=== PATIENT | female | born 1970 | race American Indian/Alaskan Native ===

== ENCOUNTER 2017-06-18 16:25 | Emergency (ER) | payer OTHER ==
[~2017-06-18] VITALS: Ht 154.9 cm; Wt 85.7 kg
[~2017-06-18 16:25] MED LIST: NORCO 5-325 TA1 EACH PO; PROVENTIL HFA6.7 GM INH
[2017-06-18] MEDS ORDERED: VENTOLIN HFA18 GM INH (17:02)
[2017-06-18] MEDS ORDERED: ZITHROMAX250 MG PO (17:02)
[2017-06-18] MEDS ORDERED: TESSALON PERLE100 MG PO (17:02)
== END 2017-06-18 17:06 | disposition home or self-care (01) ==
LOC: ED 16:25
DX: J32.9 Chronic sinusitis, unspecified (principal); J40 Bronchitis, not specified as acute or chronic; F17.200 Nicotine dependence, unspecified, uncomplicated; Z88.0 Allergy status to penicillin; Z88.6 Allergy status to analgesic agent
CPT/HCPCS: 99283

== ENCOUNTER 2017-07-04 12:18 | Inpatient (IN) | payer OTHER ==
[~2017-07-04] VITALS: Ht 154.9 cm; Wt 92.7 kg
[~2017-07-04 12:18] MED LIST changes: +TESSALON PERLE100 MG PO; +VENTOLIN HFA18 GM INH; +ZITHROMAX250 MG PO
--- NOTE | 2017-07-04 18:23 | NUR ---
46 YR OLD FEMALE ARRIVED TO ROOM 130 FROM ER VIA STRETCHER. PT STOOD AND TRANSFERRED SELF TO BED. HUFFMAN CATH WITH TEMP PROBE INSERTED BY Arsen RUSSO RN AND 20 GAUGE IV INSERTED IN LEFT WRIST. ASSESSMENT COMPLETED AND PT C/O OF BACK/FLANK PAIN. IVF BOLUS 3 LITERS NS COMPLETED FROM ER AND LR BOLUS RUNNING. IVF NS WITH 40 MEQ KCL RUNNING AT 200 ML/HR AND 3 GM MAGNESIUM STARTED. ORAL POTASSIUM 30 MEQ TAKEN WITHOUT PROBLEMS.
--- NOTE | 2017-07-04 20:04 | NUR ---
REPORT FROM DAY SHIFT. PT ATE JELLO, APPLE SAUCE AND JELLO. PT INFORMED HAD KIDNEY STONE AND THAT THE UROLOGIST WANTED TO REMOVE IT. AT FIRST TEARFUL BUT THEN CALMED. BOYFRIEND AT BEDSIDE. DR AYALA ORDERED 500ML LR BOLUS AND IT IS INFUSING EJ SITE. DOES C/O SOME ACHING AT L HAND IV SITE BUT HAS KCL INFUSING.RR 30 BUT DEINIES SOB AND IS LAYING FLAT.
--- NOTE | 2017-07-04 20:51 | NUR ---
DR AGUERO AND Izzy RAINEY TRAPPER ANIMAL IN TO SEE PT. SCDS PLACED.
--- NOTE | 2017-07-04 21:13 | NUR ---
TO OR PER STRETCHER.
--- NOTE | 2017-07-04 22:05 | NUR ---
07/04/17 0539 Kellee Oro PT LIFTS HEAD AND REMOVES OXYGEN MASK. OXYGEN SATURATION REMAINS 100% ON RA.
--- NOTE | 2017-07-04 22:22 | NUR ---
TO CCU FROM PACU, REPORT RECIEVED FROM NEAL JOHN. PT AWAKENS BUT THEN FALLS BACK TO SLEEP. SHE DENIES PAIN.
--- NOTE | 2017-07-04 22:52 | NUR ---
DR AYALA GIVEN UPDATE. WILL CONT TO MONITOR URINE OUTPUT.
--- NOTE | 2017-07-04 23:31 | NUR ---
AWAKENS EASILY, STATES FEELING BETTER IS THIRSTY. T 102.2, GIVEN 650MG TYLENOL PO AND ABLE TO TAKE PO KCL. HAD FEW EXP WHEEZES BUT CLEARED AFTER COUGHING.
--- NOTE | 2017-07-05 00:46 | NUR ---
REUQESTING JELLO AND APPLESAUCE, GIVEN, SITTING UP WATCHING TV
--- NOTE | 2017-07-05 02:14 | NUR ---
DIAPHORETIC, GOWN CHANGED. STATES FEELING BETTER JUST REALLY THIRSTY. DRINKING 7-UP. CRACKERS AT BEDSIDE PER REQUEST.
--- NOTE | 2017-07-05 06:01 | NUR ---
LAB IN TO DRAW BLOOD. PT OCC SNACKING ON CRACKERS.
--- NOTE | 2017-07-05 08:24 | OR ---
[facility] [address], [place] [address] Signed DATE OF SERVICE: 07/04/2017 PREOPERATIVE DIAGNOSES: Urosepsis due to obstructing 8 mm mid right ureteral calculus. Active urinary tract infection. POSTOPERATIVE DIAGNOSES: Urosepsis due to obstructing 8 mm mid right ureteral calculus. Active urinary tract infection. OPERATION PERFORMED: Diagnostic cystoscopy. Insertion of a 6 x 22 cm contour double-J ureteral stent into the right ureter. SURGEON: Chelsy Aguero MD. ANESTHESIA: General. ESTIMATED BLOOD LOSS: None. COMPLICATIONS: None. SPECIMENS: None. INDICATIONS FOR PROCEDURE: Ms. Shearer is a very pleasant 46-year-old female with no previous history of nephrolithiasis who presented to the emergency department earlier today with a 6-day history of lethargy and low back pain. Urinalysis was obtained and she was found to have an active UTI. On exam, she was found to have CVA tenderness on the right side. So, Dr. Berman ordered a CT scan. The CAT scan revealed right vdca-bs-sqsomxep hydronephrosis due to an obstructing 8 mm mid right ureteral calculus. Since her admission, she has been hypotensive with a systolic in the 80s to low 90s. Due to the acute nature of her illness, the plan is for her to undergo immediate cystoscopy with right ureteral stent insertion. OPERATIVE FINDINGS: On cystoscopy, there was no evidence of any suspiciou s masses, lesions, or stones within the bladder. 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 Bilateral ureteral orifices are in their normal anatomic location. A 6 x 22 cm contour double-J ureteral stent was inserted into the right ureter under direct visualization without difficulty. Fluoroscopy confirmed adequate placement of the stent once the Sensor wire was pulled. Electronically Signed By: CHELSY AGUERO MD 07/05/17 0824 PATIENT NAME: MARIBETH SHEARER OPERATIVE REPORT DATE OF : 66 PHYSICIAN: CHELSY AGUERO MD REPORT #: [id number] REPORT IS CONFIDENTIAL AND NOT TO BE RELEASED WITHOUT AUTHORIZATION [facility] [address], [place] [address] Signed DESCRIPTION OF PROCEDURE: After informed consent was obtained, the patient was taken back to the operating room. She was transferred from the [facility] to the operating table where general anesthesia was induced. She was placed in the dorsal lithotomy position and her genitalia were prepped and draped in the standard sterile fashion. Using a 30 deg r ee lens and a 22-Maldivian introducer, a rigid cystoscope was inserted through the urethra and into her bladder under direct visualization. Panendoscopic views of the bladder were then obtained. Please see above findings. Attention was turned to the right ureteral orifice. A 0.035 Sensor wire was inserted into the right ureteral orifice and up into the right ureter. Fluoroscopy confirmed adequate placement of the wire into the right collecting system. Over the wire, a 6 x 22 cm double-J ureteral stent was inserted under direct visualization into the right ureter. The Sensor wire was removed and repeat fluoroscopy confirmed the presence of an adequate proximal coil within the right renal pelvis. An adequate distal coil was seen on cystoscopy. The cystoscope was then removed and a 16-Maldivian Lopez catheter was then reinserted into the patient's bladder. The procedure was then terminated. The patient tolerated the procedure well without any complication. She will now be transferred back to the CCU for routine postoperative care, and continuation of her IV cefepime. MD TALISHA Lee/Yoselinl /[id number] Electronically Signed By: CHELSY AGUERO MD 07/05/17 0824 PATIENT NAME: MARIBETH SHEARER OPERATIVE REPORT DATE OF : 66 PHYSICIAN: CHELSY AGUERO MD REPORT #: [id number] REPORT IS CONFIDENTIAL AND NOT TO BE RELEASED WITHOUT AUTHORIZATION
--- NOTE | 2017-07-05 08:24 | CONS ---
[facility] [address] [place], [place] [address] Signed DATE OF SERVICE: 07/04/2017 CHIEF COMPLAINT: Urosepsis secondary to obstructing 8 mm right midureteral calculus. HISTORY OF PRESENT ILLNESS: Ms. Michell arce s a very pleasant, 46-year-old female with no previous history of nephrolithiasis, who presented to the emergency department earlier this afternoon with a 6-day history of intermittent low back pain, lethargy, and nausea. Initially, she was not experiencing any nausea; however, as the days progressed, she began to experience nausea with dry heaves. She denied any active fevers or chills as an outpatient; however, by the time she made it to the emergency department, she was actively febrile and hypotensive w ith a systolic pressure of as low as 79. She denied any dysuria or gross hematuria. A urinalysis was performed, which did reveal a nitrite-positive UTI. She underwent a CT scan, which revealed an 8 mm obstructing right midureteral calculus with associated jxbq-tr-beqcvirg hydronephrosis. I have been contacted by Dr. Susan Berman to intervene in the form of ureteral stent insertion. REVIEW OF SYSTEMS: As above. PAST MEDICAL HISTORY: Significant for bronchial asthma. PAST SURGICAL HISTORY: Significant for cholecystectomy and hernia repair surgery. MEDICATIONS: Albuterol sulfate 1 to 2 inhalations q.2 hours p.r.n. wheezing. ALLERGIES: She is allergic to penicillins and NSAIDs. FAMILY HISTORY: Noncontributory. SOCIAL HISTORY: She does have a positive history of tobacco use; however, she claims she quit smoking approximately 2 weeks ago. PHYSICAL EXAMINATION: VITAL SIGNS: As of 2120 are as follows; temperature is 37.9 degrees, pulse is in the 100s, respirations 18-25, blood pressure 80-94/42-58. She is satting 98-100% on room air. GENERAL: On exam, she is in no acute distress. She is resting in bed. She appears lethargic; however, she is alert and oriented. Electronically Signed By: CHELSY AGUERO MD 07/05/17 0824 PATIENT NAME: MARIBETH SHEARER CONSULTATION DATE OF : 66 PHYSICIAN: CHELSY AGUERO MD REPORT #: [id number] REPORT IS CONFIDENTIAL AND NOT TO BE RELEASED WITHOUT AUTHORIZATION [facility] [address], [place] [address] Signed LUNGS: Her lungs are clear to auscultation. ABDOMEN: Soft and nondistended. EXTREMITIES: She has right-sided flank tenderness to palpation. She is moving all extremities normally. She has a Lopez catheter inserted and in place and draining clear yellow urine. LABORATORY DATA: Sodium 131, potassium 3, chloride 96, CO2 26. Her BUN is 14, creatinine 1.38. Her reported baseline creatinine is 0.7. White blood cell count 12.8, hemoglobin 11.6, hematocrit 34.9, platelets 224. She has an elevated neutrophil count of 82 and a bandemia of 15. Urinalysis reveals a urine pH of 5, specific gravity 1.016, protein of 100, ketones 15, blood 50, nitrite positive, 100 leuks, 30 white cells per high-powered field. IMAGING: Please refer to HPI for details. ASSESSMENT Urosepsis secondary to obstructing 8 mm right midureteral calculus. PLAN: The patient has been placed on strict n.p.o. and she has already been started on IV cefepime. I discussed with her the importance of undergoing cystoscopy with right ureteral stent insertion for active decompression of her obstructed right collecting system. I discussed the risks an d benefits of the procedure, which would include damage to the ureter as well as worsening of her hypotension due to inadvertent manipulation of the stone. She verbalized understanding of the risks and benefits and has agreed to proceed. MD TALISHA Lee/Mariajose /[id number] Electronically Signed By: CHELSY AGUERO MD 07/05/17 0824 PATIENT NAME: MARIBETH SHEARER CONSULTATION DATE OF : 66 PHYSICIAN: CHELSY AGUERO MD REPORT #: [id number] REPORT IS CONFIDENTIAL AND NOT TO BE RELEASED WITHOUT AUTHORIZATION
--- NOTE | 2017-07-05 08:40 | NUR ---
TYLENOL 650 MG PO GIVNE FOR BACK PAIN.
--- NOTE | 2017-07-05 08:45 | NUR ---
ITTING UP IN BED TO EAT BREAKFAST. FRIEND IN ROOM.
--- NOTE | 2017-07-05 08:48 | NUR ---
PT C/O PAIN, CURSING AT STAFF AND PT MARY CRUSING AT STAFF. "YOU ARE NOT HELPING HER" EXPLAINED THAT DR AYALA DOES NOT HAVE PAIN MEDICATION ORDERED AT THIS TIME, MARY CURSED AT FUEL CELL BATTERY TECHNICIAN" BITCH YOU ARE NOT HELPING HER" THIS FUEL CELL BATTERY TECHNICIAN STOPED TRYING TO TALK AND PT AND MARY CONTIOUED TO C/O ABOUT THIS HOSPITAL. MARY STATED "I SHOULD HAVE TAKEN YOU TO [facility] IF THEY ARE NOT GOING TO GIVE YOU PAIN MEDICATION. PT WAS ON HER PHONE AND ORDERED BREAKFAST.
--- NOTE | 2017-07-05 09:35 | NUR ---
TOOK BREAKFAST WELL. RESTFUL NOW.
--- NOTE | 2017-07-05 10:10 | NUR ---
DR. AYALA HERE TO SEE PATIENT. ORDERS RECIEVED.
--- NOTE | 2017-07-05 10:26 | NUR ---
SLEEPING. WILL DC HUFFMAN CATH WHEN WAKES.
--- NOTE | 2017-07-05 11:17 | NUR ---
RECIEVED A PHONE CALL FROM EDGAR ABOUT THIS PT AND HER CONCERNS TO ATTEMPT TO FIND IF THERE IS SOMETHING MORE WE A HOSPITAL COULD DO TO TAKE BETTER CARE OF THIS PT. EDGAR STATED THE PT AND HER SO SEEMED TO HAVE SOME KIND OF CHIP FOR LACK OF BETTER WORD ON THEIR SHOULDER TOWARD THE HOSPITAL. I TOLD HER I WOULD CALL TO [facility] AND SEE IF THEY COULD HELP IN ANY WAY TRY TO BRIDGE THIS PORTION OF THE CARE. DR AYALA THEN CAME IN AND TALKED WITH ME ABOUT THE SAME ISSUES AND I TOLD HIM I LEFT A MESSAGE WITH [facility] AT [facility] REGARDING THIS. RG RN FROM [facility] RETURNED MY CALL AND STATED SHE WOULD TALK TO IRVIN THE OTHER RN AT [facility] AND SEE IF THEY COULD COME UP WITH A PLAN BUT SHE WAS NOT SURE HOW RECEPTIVE THE PT OR HER SO WOULD BE THEY SEEM TO HAVE A CHIP AGAINST [facility] AND [facility] ALREADY DUE TO MEDICAL ISSUES OF THE SO. [facility] IS VERY WELL ACQUAINTED WITH THIS PT AND HER SO. IRVIN RN FROM [facility] DID CALL AND SAY SHE WOULD BE UP TO TALK WITH PT AND SEE IF THIS WOULD HELP BUT WAS UNSURE IF IT WOULD MAKE ANY DIFFERENCE.
--- NOTE | 2017-07-05 11:45 | NUR ---
[facility] CASE WORKERS HERE TO TALK WITH PATIENT.
--- NOTE | 2017-07-05 12:30 | NUR ---
HUFFMAN CATH DC'D PER ORDERS. EMPTIED FOR 600 ML URINE. IS COOPERATIVE AT THIS TIME. ASSESSMENT DONE. DENIES DIZZINESS.
--- NOTE | 2017-07-05 12:45 | NUR ---
SITTING UP IN BED FOR LUNCH.
--- NOTE | 2017-07-05 15:00 | NUR ---
AMBULATED TO BR TO VOID. DENIES DIZZINESS. IS STABLE ON FEET. UNABLE TO MEASURE URINE MEASURING HAT MISSED. DENEIS PAINFUL URINATION. THEN TO CHAIR. SPONGE BATH GIVEN. PATIENT REFUSING SHOWER.
--- NOTE | 2017-07-05 15:20 | NUR ---
BACK TO BED WITH ASSIST. HAS INCREASED BACK PAIN WITH MOVEMENT. HAS PRODUCTIVE COUGH.
--- NOTE | 2017-07-05 16:00 | CONS ---
[facility] [address] [place], [place] [address] Signed DATE OF SERVICE: 07/05/2017 SUBJECTIVE: Ms. Shearer is a 46-year-old female who was admitted yesterday to the critical care unit after being found to be experiencing active urosepsis due to UTI in combination with an obstructing 8-mm right mid ureteral calculus. She immediately underwent cystoscopy with right ureteral stent insertion last evening without complication. This morning, she appears to be quite comfortable and is sleeping. She is responding appropriately to questions. However, she appears to be a bit groggy. She has no complaints other than some mild lower back discomfort. She denies any subjective fevers, chills, or flank discomfort associated with her indwelling right ureteral stent. OBJECTIVE: Her most recent recorded temperature is 97.2 degrees Fahrenheit. Her pulse is running now in the late 70s to mid 80s. Respiratory rate is now in the 18-22 range. Blood pressure is in the 90s over 50s to 60s range. She is satting 94% on room air. She has had a total of 2505 mL of urine out since her admission. PHYSICAL EXAMINATION: GENERAL: The patient appears comfortable and is sleeping in her bed. She does respond to appropriate verbal stimuli and is answering questions appropriately. She does not appear to be disoriented or in any distress. CARDIOVASCULAR: Reveals a regular rate and rhythm. LUNGS: Clear. ABDOMEN: Soft, nondistended. She still has some mild tenderness on palpation of the right flank. GENITOURINARY: She has a Lopez catheter in place which is draining yellow urine with a ajlu-ia-zmsaanno amounts of sediment. LABS: Her white blood cell count is down to 10.1 from 12.8 yesterday. Hemoglobin is 10.5, hematocrit 31.2, platelets 183. Neutrophils are down from 82 and are now currently 79.3. Her sodium is 139, potassium is 3.8, chloride 109, CO2 21, BUN 13; creatinine is now 1.01, down from 1.38 yesterday. IMAGING: No new imaging obtained since her surgery. ASSESSMENT: This is a 46-year-old female with urosepsis due to an obstructing 8-mm right mid ureteral calculus, who is now postoperative day #1, status post urgent cystoscopy with right ureteral stent insertion. Active urinary tract infection with cultures pending. Electronically Signed By: CHELSY AGUERO MD 07/05/17 [facility] PATIENT NAME: MARIBETH SHEARER CONSULTATION DATE OF : 66 PHYSICIAN: CHELSY AGUERO MD REPORT #: [id number] REPORT IS CONFIDENTIAL AND NOT TO BE RELEASED WITHOUT AUTHORIZATION [facility] [address] [place] [id number] Signed PLAN: I discussed the details of yesterday's surgery with the patient today and answered all of her questions. She is aware of the fact that she will need to return to the operating room in approximately 10 days or so to undergo definitive stone extraction via right ureteroscopy with laser lithotripsy, basket extraction of stone, and a right ureteral stent exchange. I have notified the operating room and she has been tentatively placed on the schedule for July 17. In the meantime, I anticipate that the patient will be transferred to the floor with continued IV antibiotic treatment. Both blood and urine cultures are still pending. Her diet may be advanced as tolerated and I recommend early ambulation in the use of SCDs for DVT prophylaxis. MD TALISHA Lee/Modl /[id number] Electronically Signed By: CHELSY AGUERO MD 07/05/17 1600 PATIENT NAME: MARIBETH SHEARER CONSULTATION DATE OF : 66 PHYSICIAN: CHELSY AGUERO MD REPORT #: [id number] REPORT IS CONFIDENTIAL AND NOT TO BE RELEASED WITHOUT AUTHORIZATION
--- NOTE | 2017-07-05 16:50 | NUR ---
AMBULATED TO BR, AGAIN MISSED MEASURING DEVICE. PATIENT STATES SHE HAS BEEN VOIDED LARGE AMOUNT. BACK TO BED W/O INCIDENT.
--- NOTE | 2017-07-05 18:00 | NUR ---
TOOL DINNER WELL. RESTFUL AT THIS TIME.
--- NOTE | 2017-07-05 20:07 | NUR ---
PT IN ROOM WITH BOYFRIEND, EATING SNACKS AND DRINKING TEA. ASSESSMENT DONE. PT HAS AN OCCASIONAL PRODUCTIVE COUGH, COUGHING UP SPUTUM. LUNGS HAVE SOME COARSE SOUNDS THROUGHOUT THAT CLEAR WITH COUGH. IVF INFUSING. ALERT AND ORIENTED, WILL CALL WITH FURTHER NEEDS. PLAN TO TRANSFER TO MED SURG FLOOR TONIGHT DISCUSSED WITH PATIENT.
--- NOTE | 2017-07-05 21:05 | NUR ---
BEDSIDE SHIFT REPORT RECEIVED FROM CCU RNFIDELINA. PT IS ALERT/ORIENTED, RESING IN BED, SIGNIFICANT OTHER AT BEDSIDE. BELONGINGS TRANSFERRED TO ROOM 116, PT TAKEN TO ROOM VIA WHEELCHAIR.
--- NOTE | 2017-07-05 21:10 | NUR ---
REPORT GIVEN TO BONIFACIO JOHN. PT TRANSFERRED TO MED SURG FLOOR.
--- NOTE | 2017-07-05 21:45 | NUR ---
ASSESSMENT COMPLETED. ALERT/ORIENTED. REPORTS 8/10 BACK PAIN, PRN TYLENOL AND HEAT PACK PROVIDED. R.T. IN TO GIVE PRN BREATHING TREATMENT AND INSTRUCT BREATHING EXERCISES, AFTER TREATMENT, LUNGS SOUND CLEAR WITH GOOD AIR MOVEMENT. HR REGULAR. BOWEL TONES ACTIVE, DENIES NAUSEA. IV PATENT, INFUSING WNL, CEFEPIME STARTED. PT PROVIDED WITH NEW ICE WATER AND SODA. EXTRA BED MADE UP FOR JOSÉ MIGUEL, PT'S SIGNIFICANT OTHER. ORIENTED PT TO ROOM AND INSTRUCTED USE OF CALL LIGHT. PT DENIES FURTHER REQUESTS AT THIS TIME, WILL CONTINUE TO MONITOR.
--- NOTE | 2017-07-05 23:59 | NUR ---
CHECKED IN ON PT WHO IS SITTING UP IN BED WATCHING TV, SIGNIFICANT OTHER AT BEDSIDE. PT STATES PAIN IN HER LOWER BACK HAS IMPROVED TO 1/10. DENIES NEEDS AT THIS TIME, REQUESTS THAT HER DOOR BE CLOSED. CALL LIGHT IS WITHIN REACH, WILL CONTINUE TO MONITOR.
--- NOTE | 2017-07-06 02:34 | NUR ---
CHECKED IN ON PT WHO WAS AWAKE AT THIS TIME, WATCHING TV, STATES SHE HAS BEEN ABLE TO SLEEP SOME. ASSESSMENT COMPLETED. ORIENTED. REPORTS 6/10 BACK PAIN, PRN TYLENOL ADMINISTERED. DENIES NAUSEA. LUNGS SOUND COARSE, EXPIRATORY WHEEZES NOTED, R.T. CALLED TO GIVE PRN BREATHING TREATMENT. HR REGULAR. BOWEL TONES ACTIVE. IV INFUSING WNL, CEFEPIME INFUSION COMPLETED. PT DENIES FURTHER REQUESTS AT THIS TIME, WILL CONTINUE TO MONITOR.
--- NOTE | 2017-07-06 03:33 | NUR ---
PT CALLED BECAUSE IV PUMP WAS ALARMING, NEW IVF STARTED. PT STATES PAIN IN BACK HAS IMPROVED AFTER TYLENOL. DENIES FURTHER REQUESTS.
--- NOTE | 2017-07-06 05:22 | NUR ---
IN TO START CEFEPIME INFUSION. PT RESTING IN BED, WOKE WHEN I ENTERED ROOM. DENIES NEEDS AT THIS TIME. CALL LIGHT IS WITHIN REACH.
--- NOTE | 2017-07-06 05:23 | NUR ---
CCU TX. ALERT/ORIENTED. TYLENOL GIVEN TWICE FOR BACK PAIN. LUNGS COARSE/WHEEZE AT TIMES, PRN BREATHING TREATMENTS GIVEN. HR REGULAR. BOWEL TONES ACTIVE, NO NAUSEA. SKIN AND CMS INTACT. STEADY ON FEET, INDEPENDENT IN ROOM. VOIDING QS. BM DURING SHIFT. IV PATENT, LR @125, IV ABX: CEFEPIME. PT HOPES TO D/C HOME TODAY.
--- NOTE | 2017-07-06 07:20 | NUR ---
BEDSIDE HANDOFF REPORT RECEIVED FROM AMMONIA DISTILLER RN. PT SLEEPING LEFT UNDISTURBED.
--- NOTE | 2017-07-06 09:34 | NUR ---
PATIENT WAS SLEEPING IN BED SO I CHANGED HER WHITE BOURD AND DID NOT DISTURB HER.
--- NOTE | 2017-07-06 11:46 | NUR ---
PT RESTING IN BED, LEFT UNDISTURBED. IV FLUIDS INFUSING AT 125ML HR. PT VOIDING INDEPENDENT, QS.
--- NOTE | 2017-07-06 12:20 | NUR ---
PATIENT SLEEPING IN BED. I WOKE HER UP TO LET HER KNOW HER LUNCH WAS THERE. PATIENT STATED SHE WOULD EAT IN A FEW MINUTES WHEN HER GOT BACK IN THE ROOM. SHE AGREED TO SHOWER AFTER SHE ATE. PATIENT STATED SHE DID NOT NEED ANYTHING AT THIS TIME. HER CALL LIGHT IS IN REACH.
--- NOTE | 2017-07-06 13:25 | NUR ---
PT RESTING IN BED. PT COMPLAINT OF BEING UNCOMFORTABLE, REFUSING HEATING PACK OR TYLENOL. IV ABX INFUSING. ENCOURAGED PT TO GET OUT OF BED AND TRY SITTING IN CHAIR. PT LUNG SOUNDS CLEAR, LOOSE COUGH. PT DENIES NEEDS AT THIS TIME.
--- NOTE | 2017-07-06 14:31 | NUR ---
PATIENT AWAKE IN BED EATING [employer]. TOOK PATIENTS VITALS AND OFFERED SHOWER. SHE SAID SHE WOULD CALL AFTER EATING HER CHOCOLATE. DR AYALA AND NURSE NENA CAME IN. CALL LIGHT IN REACH.
--- NOTE | 2017-07-06 15:24 | NUR ---
PT GIVEN PAIN MEDICATION, RATING PAIN 7/10. IV DRESSING CHANGE COMPLETED.
--- NOTE | 2017-07-06 18:10 | NUR ---
PT ON ROOM AIR, LUNG SOUNDS CLEAR WITH DIMINISHED BASES. SALINE LOCKED, IV CEFEPIME. PT TOLERATING REGULAR DIET, GOOD APPETITE. PT INDEPENDENT IN ROOM. NORCO ADDED FOR PRN PAIN MEDICATION. PT VOIDING QS. PLAN TO DISCHARGE TOMORROW.
--- NOTE | 2017-07-06 19:20 | NUR ---
BEDSIDE SHIFT REPORT RECEIVED FROM ALVARO STEELE. PT IS CURRENTLY SLEEPING, NO APPARENT DISTRESS. RESPIRATIONS EVEN AND UNLABORED. WILL CONTINUE TO MONITOR.
--- NOTE | 2017-07-06 21:00 | NUR ---
ASSESSMENT COMPLETED. ALERT/ORIENTED. DENIES PAIN AT THIS TIME. LUNGS CLEAR, DIM IN BASES, RA. HR REGULAR. BOWEL TONES ACTIVE, NO NAUSEA. SKIN INTACT. CMS INTACT. IV PATENT, CEFEPIME INFUSION STARTED. PT DENIES NEEDS AT THIS TIME, WILL CONTINUE TO MONITOR.
--- NOTE | 2017-07-06 23:15 | NUR ---
PT CALLED TO REQUEST SOMETHING TO DRINK. ICE WATER AND SODA PROVIDED. PT REPORTS THAT HER BACK PAIN HAS INCREASED TO 7, 1 TAB NORCO ADMINISTERED. DENIES FURTHER REQUESTS AT THIS TIME.
--- NOTE | 2017-07-07 02:24 | NUR ---
PT SLEEPING, NO APPARENT DISTRESS. RESPIRATIONS EVEN AND UNLABORED. WILL CONTINUE TO MONITOR.
--- NOTE | 2017-07-07 05:20 | NUR ---
IN TO START CEFEPIME INFUSION, PT STATES SHE'D LIKE TO SHOWER FIRST. IV SITE COVERED. PT SHOWERING. NEW BED LINENS PROVIDED. WILL START INFUSION ONCE PT IS FINISHED.
--- NOTE | 2017-07-07 05:21 | NUR ---
UNEVENTFUL SHIFT. PT SLEPT MAJORITY OF NIGHT. PRN NORCO GIVEN ONCE FOR BACK PAIN. LUNGS CLEAR, DIM IN BASES, RA. HR REGULAR. BOWEL TONES ACTIVE, DENIES NAUSEA. SKIN INTACT. CMS INTACT. IV PATENT, SL EXCEPT FOR IV CEFEPIME. PT SHOULD D/C HOME TODAY.
--- NOTE | 2017-07-07 07:10 | NUR ---
BEDSIDE HANDOFF REPORT RECEIVED FROM FERRYBOAT DECKHAND RN. PT SLEEPING, LEFT UNDISTURBED. IV ABX INFUSING.
--- NOTE | 2017-07-07 08:16 | NUR ---
PT SITTING ON BED. PT COMLPAINT OF PAIN TO BACK, REQUESTING PAIN MEDICATION, GIVEN 1 TAB NORCO. PT LUNG SOUNDS WITH RHONCHI TO RIGHT SIDE, DIMINISHED LEFT LOWER LOBE, ENCOURAGED I/S. PT INDEPENDENT IN ROOM, VOIDING WITHOUT DIFFICULTY. PT WITH GOOD APPETITE, TOLERATING REGUALR DIET. PT DENIES OTHER NEEDS AT THIS TIME.
[2017-07-07] MEDS ORDERED: BACTRIM DS TAB1 EACH PO ×2 (08:21→08:22)
== END 2017-07-07 12:00 | disposition home or self-care (01) | DRG 872 ==
LOC: ED 12:18 → MS 16:50 → CCU 16:50 → MS 07-05 21:05
PROVIDERS: Urology; ADMIT Internal Medicine
PROC: 0T768DZ Dilation of Right Ureter with Intraluminal Device, Via Natural or Artificial Opening Endoscopic (ICD-10-PCS; principal; 2017-07-04 21:30)
DX: A41.51 Sepsis due to Escherichia coli [E. coli] (principal); N39.0 Urinary tract infection, site not specified; N17.9 Acute kidney failure, unspecified; E87.1 Hypo-osmolality and hyponatremia; R65.20 Severe sepsis without septic shock; N13.9 Obstructive and reflux uropathy, unspecified; N20.0 Calculus of kidney; E87.6 Hypokalemia; E83.42 Hypomagnesemia; R74.0 Nonspecific elevation of levels of transaminase and lactic acid dehydrogenase [LDH]; D64.9 Anemia, unspecified; J45.20 Mild intermittent asthma, uncomplicated; F17.210 Nicotine dependence, cigarettes, uncomplicated
CPT/HCPCS: 00910; 36415; 71010; 71020; 74176; 74430; 80053; 81001; 83605; 83735; 84703; 85025; 87040; 87077; 87088; 87186; 94640; 94668; 94760; 96361; 96365; 99285; C2617; J0330; J0692; J1100; J2250; J2405; J2704; J2765; J3010; J3475; J7030; J7120; Q9967

== ENCOUNTER → 2020-08-19 | Emergency (ER) | payer OTHER ==
[~2020-08-19] VITALS: Ht 152.4 cm; Wt 92.7 kg
[~2020-08-19] MED LIST changes: +BACTRIM DS TAB1 EACH PO; +KEFLEX500 MG PO; +NORCO 7.5-3251 EACH PO; +ONDANSETRON ODT8 MG PO
--- OUTSIDE RECORDS SUMMARY | ~2020-08-19 | XMS | Encounter Summary ---
Demographics + + + | Address | [address] | | | [place] [address] | + + + | Preferred Language | Unknown | + + + | Marital Status | Single | + + + | Episcopalian Affiliation | Unknown | + + + | Race | Unknown | + + + | Ethnic Group | Unknown | + + + Author + + + | Author | [facility] | | | and [place] | + + + | Organization | [facility] | | | and [place] | + + + | Address | Unknown | + + + | Phone | Unavailable | + + + Support + + +---------+ + | Name | Relationship | Address | Phone | + + +---------+ + | Julian Crowe | ECON | Unknown | | + + +---------+ + Care Team Providers + +------+ + | Care Senior Software Systems Engineer Name | Role | Phone | + +------+ + | Luli Diggs PA-C | PCP | | + +------+ + Encounter Details +--------+ + + + + | Date | Type | Department | Care Team | Description | +--------+ + + + + | 06/14/ | Orders Only | [facility] | Dillon Coleman | Left knee pain, | | 2015 | | ORTHOPEDIC SURGERY | MD Tiffanie [address] | unspecified | | | | [address] | [place] | chronicity (Primary | | | | [place] | [id number] | Dx) | | | | [address] | | | | | | [phone] | | | +--------+ + + + + Social History + +-------+ +--------+------+ | Tobacco Use | Types | Packs/Day | Years | Date | | | | | Used | | + +-------+ +--------+------+ | Never Assessed | | | | | + +-------+ +--------+------+ + + + | Sex Assigned at | Date Recorded | | | | + + + | Not on file | | + + + documented as of this encounter Plan of Treatment + +---------+--------+ + + | Name | Type | Priori | Associated Diagnoses | Order Schedule | | | | ty | | | + +---------+--------+ + + | XR Knee Left 4 + Vw | Imaging | Routin | Left knee pain, | Expected: | | | | e | unspecified | 06/14/2016, Expires: | | | | | chronicity | 06/14/2017 | + +---------+--------+ + + documented as of this encounter Visit Diagnoses + + | Diagnosis | + + | Left knee pain, unspecified chronicity - Primary | + + documented in this encounter"
--- OUTSIDE RECORDS SUMMARY | ~2020-08-19 | XMS | Encounter Summary ---
Demographics + + + | Address | [address] | | | [place] [address] | + + + | Preferred Language | Unknown | + + + | Marital Status | Single | + + + | Amish Affiliation | Unknown | + + + | Race | Unknown | + + + | Ethnic Group | Unknown | + + + Author + + + | Author | [facility] | | | and [place] | + + + | Organization | [facility] | | | and [...] Team Providers + +------+ + | Care Digital Marketing Manager Name | Role | Phone | + +------+ + PCP | Unavailable | + +------+ + Encounter Details +--------+ + + + + | Date | Type | Department | Care Team | Description | +--------+ + + + + | 03/16/ | Hospital | [facility] | | | | 2008 - | Encounter | MED CTR GENERIC IP | | | | | | CONV DEPT [address] | | | | 03/17/ | | [address], | | | | 2008 | | [place] [address] | | | | | | [phone] | | | +--------+ + + + [...] as of this encounter Plan of Treatment Not on filedocumented as of this encounter Visit Diagnoses Not on filedocumented in this encounter"
--- OUTSIDE RECORDS SUMMARY | ~2020-08-19 | XMS | Clinical Summary ---
Demographics + + + | Address | [address] | | | [place] [address] | + + + | Preferred Language | Unknown | + + + | Marital Status | Single | + + + | Mandaeism Affiliation | Unknown | + + + | Race | Unknown | + + + | Ethnic Group | Unknown | + + + Author + + + | Author | [facility] | | | and [place] | + + + | Organization | [facility] | | | [...] Team Providers + +------+ + | Care Sheet Heater Helper Name | Role | Phone | + +------+ + | Luli Diggs PA-C | PCP | | + +------+ + Allergies Not on File Medications Not on file Active Problems Not on file Social History + +-------+ +--------+------+ | Tobacco [...] on file | | + + + Last Filed Vital Signs Not on file Plan of Treatment + + +-------+ + | Health Maintenance | Due Date | Last | Comments | | | | Done | | + + +-------+ + | Vaccine: | | | | | Dtap/Tdap/Td (1 - | 7 | | | | Tdap) | | | | + + +-------+ + | Cervical Cancer | | | | | Screening (Pap) | 8 | | | + + +-------+ + | Breast Cancer | | | | | Screening | 3 | | | + + +-------+ + | Vaccine: Zoster (1 | | | | | of 2) | 8 | | | + + +-------+ + | Vaccine: Influenza | | | | | (#1) | 0 | | | + + +-------+ + Results Not on filefrom Last 3 Months Insurance + +--------+ +--------+ +---------+--------+ | Payer | Benefi | Subscriber | Effect | Phone | Address | Type | | | t Plan | ID | josé manuel | | | | | | / | | Dates | | | | | | Group | | | | | | + +--------+ +--------+ +---------+--------+ | [employer] | [employer] | [id number] | 03/20/20 | | | Indemn | | SERVICE | YELLOW | | 16-Pre | | | ity | | | HAWK | | sent | | | | + +--------+ +--------+ +---------+--------+ | [employer] | [employer] | [id number] | | [phone] | | Medica | | MEDICAID HMO | HEALTH | | 016-Pr | 1 | | id | | | MDCD | | esent | | | | | | HMO [place] | | | | | | + +--------+ +--------+ +---------+--------+ + +--------+ +--------+-------+ + | Guarantor Name | Accoun | Relation to | Date | Phone | Billing Address | | | t Type | Patient | of | | | | | | | | | | + +--------+ +--------+-------+ + | Diane Galarza T | Person | Self [birth year] | [address] | | | [place] | | 1970 | | [place] [address] | | | mihaela | | | | | + +--------+ +--------+-------+ + Advance Directives + + + + + | Type | Date Recorded | Patient | Explanation | | | | Architecture Analyst | | + + + + + | Power of | | | | | Public Health Veterinarian | | | | + + + + + | Advance | | | | | Directive | | | | + + + + +"
--- OUTSIDE RECORDS SUMMARY | ~2020-08-19 | XMS | Encounter Summary ---
Demographics + + + | Address | [address] | | | [place] [address] | + + + | Preferred Language | Unknown | + + + | Marital Status | Single | + + + | Jain Affiliation | Unknown | + + + | Race | Unknown | + + + | Ethnic Group | Unknown | + + + Author + + + | Author | [facility] | | | and [place] | + + + | Organization | [facility] | | | [...] Team Providers + +------+ + | Care Shingle Grader Name | Role | Phone | + +------+ + | Luli Diggs PA-C | PCP | | + +------+ + Encounter Details +--------+ + + + + | Date | Type | Department | Care Team | Description | +--------+ + + + + | 06/14/ | Orders Only | [facility] | Dillon Coleman | Left knee pain, | | 2016 | | ORTHOPEDIC SURGERY | MD Tiffanie [address] | unspecified | | | | [address] | [place] | chronicity | | | | [place] | [address] | | | | | [address] | | | | | | [phone] | | | +--------+ + + + [...] filedocumented as of this encounter Visit Diagnoses + + | Diagnosis | + + | Left knee pain, unspecified chronicity | + + documented in this encounter"
--- OUTSIDE RECORDS SUMMARY | 2020-08-19 13:58 | XMS ---
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 Gia has no Care Guidelines for this patient. Evelia VISIT COUNT (12 MO.) 1 LILIANA Delacruz TOTAL 1 NOTE: Visits indicate total known visits. ED/C VISIT TRACKING (12 MO.) 08/19/2020 13:56 LILIANA [facility] [place] TYPE: Emergency COMPLAINT: - BACK/FLANK PAIN INPATIENT VISIT TRACKING (12 MO.) No inpatient visits to display in this time frame [email or web address]
== END ==
LOC: ED 13:55
DX: N13.2 Hydronephrosis with renal and ureteral calculous obstruction (principal); N39.0 Urinary tract infection, site not specified; Z96.0 Presence of urogenital implants; J45.909 Unspecified asthma, uncomplicated; F17.200 Nicotine dependence, unspecified, uncomplicated; Z88.8 Allergy status to other drugs, medicaments and biological substances; Z88.0 Allergy status to penicillin; Z79.899 Other long term (current) drug therapy
CPT/HCPCS: 74176; 80053; 81001; 83690; 85025; 87088; 96374; 96375; 99284-25; A9270; J0696; J2270; J7030